=== PATIENT | female | born 1995 | race Two or more races ===

== ENCOUNTER 2016-08-05 16:16 | Emergency (ER) | payer MEDICAID ==
--- NOTE | 2016-08-05 18:05 | EDPHY ---
H & P Stated Complaint: red swollen eyes since easter Time Seen by Provider: 08/05/16 16:24 - Personal History LMP (Females 10-55): Irregular Current Tetanus/Diphtheria Vaccine: Yes Current Tetanus Diphtheria and Acellular Pertussis (TDAP): Yes - Medical/Surgical History Hx Asthma: No Hx Chronic Respiratory Disease: No Hx Diabetes: No Hx Cardiac Disease: No Hx Renal Disease: No Hx Cirrhosis: No Hx Alcoholism: No Hx HIV/AIDS: No Hx Splenectomy or Spleen Trauma: No - Social History Smoking Status: Never smoked Constitutional: Initial Vital Signs Temperature (C) 36.8 C 08/05/16 16:18 Heart Rate 114 H 08/05/16 16:18 Respiratory Rate 20 08/05/16 16:18 Blood Pressure 130/90 H 08/05/16 16:18 O2 Sat (%) 96 08/05/16 16:18 O2 Delivery Mode Room Air Allergies/Adverse Reactions: amoxicillin Allergy (Verified 08/05/16 16:20) Home Medications: Medication Instructions Recorded Cephalexin [Keflex (RX)] 500 mg PO TID #30 cap 08/05/16 Neomy Sulf/Polymyx B Sulf/Hc 1 drops OPTH Q4 #1 bottle 08/05/16 [Cortisporin Ophthalmic Drops (RX)] Medical Decision Making ED Course/Re-evaluation: CHIEF COMPLAINT: Eye pain and redness HISTORY OF PRESENT ILLNESS: The patient is a 20 y/o female, with a history of migraines, complaining of worsening bilateral eye pain and redness for the last 6 weeks. She has associated blurred vision and photophobia. She's had daily 3- hour migraines that resolve with Excedrin, but says these are normal for her. She says two weeks ago she was assessed by urgent care and given a script for some type of eye drops, but she is unsure if they were antibiotics. She used these for 4 days without improvement and thinks her symptoms actually worsened. She has been using Benadryl and other allergy medications without improvement. In the last few days she developed purulent discharge. She also notes she had a strep throat infection that was treated with antibiotics prior to eye symptom onset. She denies fever, chills, abdominal pain, urinary symptoms, joint pain. REVIEW OF SYSTEMS: A 10 point review of systems was performed and is negative with the exception of the elements mentioned in the history of present illness. PHYSICAL EXAM: HR, BP, O2 Sat, RR. Temp noted General Appearance: Alert, well hydrated, appropriate, and non-toxic appearing. Head: Atraumatic without scalp tenderness or obvious injury Eyes: Pupils equal, round, reactive to light and accommodation, EOMI, no trauma. Bilateral injected conjunctival injection with sparing of cornea, associated discharge and periorbital edema. Ears: Clear bilaterally, no perforation, normal landmarks Nose: Atraumatic, no rhinorrhea, clear. Throat: There is no erythema or exudates, no lesions, normal tonsils, mucus membranes moist. Neck: Supple, nontender, no lymphadenopathy. Respiratory: No retractions, no distress, no wheezes, and no accessory muscle use. Lungs are clear to auscultation bilaterally. Cardiovascular: Regular rate and rhythm, no murmurs, rubs, or gallops. Good capillary refill all extremities. Gastrointestinal: Abdomen is soft, nontender, non-distended, no masses, no rebound, no guarding, no peritoneal signs. Musculoskeletal: Normal active ROM of all extremities, atraumatic. Neurological: Alert, appropriate, and interactive. Nonfocal neuro exam Skin: No rashes, good turgor, no nodules on palpation. Past medical history: Migraines; IUD Past surgical history: Denies Family history: Mother age 34 from breast cancer. Social history: Has 3 y/o child. Friend at bedside. DIFFERENTIAL DIAGNOSIS: The differential diagnosis for the patient's eye symptoms included but was not limited to conjunctivitis, medication allergic reaction, periorbital cellulitis, strep infection, viral syndrome, and sepsis. MEDICAL DECISION MAKING: This is a 20 y/o female who presents with a 6-week history of bilateral eye pain and erythema. She received some sort of eye drops 2 weeks ago from urgent care that did not improve her symptoms. On exam, she has bilateral conjunctival injection, discharge, and periorbital edema. She is afebrile here. It's possible she has conjunctivitis with allergic reaction to previous treatment. We will contact [facility] pharmacy to determine which eye drops she was prescribed to determine best treatment. Pharmacy reports she was given Ocuflox drops. The patient has a reported allergy to amoxicillin. We will give her 60mg PO Prednisone, script for Keflex, and a script for Cortisporin eye drops. She understands she needs to follow up with an cane weigher tomorrow. Return precautions given. She is comfortable with this plan. - Data Points Medications Given: Discontinued Medications Cephalexin HCl (Keflex) 500 mg PO EDNOW ONE PRN Reason: Protocol Stop: 08/05/16 18:22 Last Admin: 08/05/16 18:25 Dose: 500 mg Prednisone (Prednisone) 60 mg PO EDNOW ONE Stop: 08/05/16 18:23 Last Admin: 08/05/16 18:25 Dose: 60 mg Departure - Departure Disposition: Home, Routine, Self-Care Clinical Impression: Conjunctivitis of both eyes Qualifiers: Conjunctivitis type: other Qualified Code(s): H10.89 - Other conjunctivitis Condition: Good Instructions: Conjunctivitis (ED) Additional Instructions: 1. Use eye drops as prescribed. 2. Take Keflex as prescribed. Be sure to complete the entire prescription even if you feel better. 3. Use 600mg ibuprofen every 6-8 hours for pain for the next 2-3 days. 4. Follow up with Dr. Story, cane weigher, tomorrow without fail. 5. Return to the ED for worsening of condition. 6. Follow up with your PCP for breast evaluation. Referrals: [facility] [Other] - As per Instructions Angel Story MD [Medical Doctor] - As per Instructions Prescriptions: Cephalexin [Keflex (RX)] 500 mg PO TID #30 cap Neomy Sulf/Polymyx B Sulf/Hc [Cortisporin Ophthalmic Drops (RX)] 1 drops OPTH Q4 #1 bottle Report Scribed for: Sumanth Wilson Report Scribed by: Claudette Gonzalez Date of Report: 08/05/16 Time of Report: 18:06
[2016-08-05] MEDS ORDERED: CEPHALEXIN 500 MG CAP PO ONE (18:21)
[2016-08-05] MEDS ORDERED: predniSONE 20 MG TAB PO ONE (18:22)
[2016-08-05 18:59] VITALS: BP 114/86; PULSE 87; RESP 15; TEMP 98.8; O2SAT 95
== END 2016-08-05 19:00 | disposition home or self-care (01) ==
DX: H10.89 Other conjunctivitis (principal)

== ENCOUNTER 2016-09-06 09:43 | Emergency (ER) | payer MEDICAID ==
[2016-09-06] MEDS ORDERED: FLUORESCEIN SODIUM 1 MG STRIP OP ONE (09:46)
[2016-09-06] MEDS ORDERED: PROPARACAINE 0.5% 15 ML OPHT DROP OP ONE (09:46)
--- NOTE | 2016-09-06 10:30 | EDPHY ---
H & P Stated Complaint: Possible Eye infection Time Seen by Provider: 09/06/16 09:45 HPI/ROS: CHIEF COMPLAINT: bilateral eye complaint HISTORY OF PRESENT ILLNESS: 20-year-old female presents to the emergency department complaining of bilateral eye redness, itching and eyelid tenderness. Patient's symptoms have been going on since . She was seen at an urgent care and given a prescription for Ocuflox eyedrops 6 weeks ago, she use those for 4 days without any improvement. Patient reports she has been using Benadryl and Zyrtec without improvement. She was seen in this emergency department 1 month ago and given a prescription for Cortisporin drops and Keflex. Patient states that she finished these without improvement. Patient states she has good days and bad days. She denies foreign body sensation. No fevers or chills, urinary symptoms, no joint pain, no abdominal pain. She has no other URI symptoms. Patient was instructed to see an collections specialist the next day after her visit 1 month ago and she was unable to do so as she has Medicaid and could not find an collections specialist who takes Medicaid. Patient reports her symptoms are not worsening but they are not going away. REVIEW OF SYSTEMS: A comprehensive 10 point review of systems is otherwise negative aside from elements mentioned in the history of present illness. Source: Patient Exam Limitations: No limitations - Personal History LMP (Females 10-55): IUD In Place Current Tetanus Diphtheria and Acellular Pertussis (TDAP): Yes - Medical/Surgical History Hx Asthma: No Hx Chronic Respiratory Disease: No Hx Diabetes: No Hx Cardiac Disease: No Hx Renal Disease: No Hx Cirrhosis: No Hx Alcoholism: No Hx HIV/AIDS: No Hx Splenectomy or Spleen Trauma: No Other PMH: Denies - Social History Smoking Status: Never smoked - Physical Exam Exam: Visual Acuity: Noted from Nurse's notes. Pupils: PERRLA, EOMI, no nystagmus, no trauma, no injection. Lids: bilateral upper and lower lid edema, swelling and erythema Skin: No proptosis, no vesicles Conjunctivae: injected, not icteric, no discharge Cornea: Exam with slit lamp and fluoroscein shows no corneal abrasion, negative Elise, no dendritic lesions Anterior chamber: Normal, no hyphema or hypopyon Constitutional: Initial Vital Signs Temperature (C) 36.6 C 09/06/16 09:47 Heart Rate 95 09/06/16 09:47 Respiratory Rate 14 09/06/16 09:47 Blood Pressure 116/66 09/06/16 09:47 O2 Sat (%) 97 09/06/16 09:47 O2 Delivery Mode Room Air Allergies/Adverse Reactions: amoxicillin Allergy (Verified 08/05/16 16:20) Home Medications: Medication Instructions Recorded Cephalexin [Keflex (RX)] 500 mg PO TID #30 cap 08/05/16 Neomy Sulf/Polymyx B Sulf/Hc 1 drops OPTH Q4 #1 bottle 08/05/16 [Cortisporin Ophthalmic Drops (RX)] Medical Decision Making - Data Points Medications Given: Discontinued Medications Fluorescein Sodium (Zeezl-I-Eaxfn) 1 mg OP EDNOW ONE Stop: 09/06/16 09:47 Last Admin: 09/06/16 09:56 Dose: 1 mg Proparacaine HCl (Alcaine 0.5%) 1 drops OP EDNOW ONE Stop: 09/06/16 09:47 Last Admin: 09/06/16 09:56 Dose: 1 drops Departure - Departure Disposition: Home, Routine, Self-Care Clinical Impression: Blepharitis of both eyes Qualifiers: Blepharitis type: unspecified type Eyelid: both upper and lower Qualified Code( s): H01.001 - Unspecified blepharitis right upper eyelid; H01.002 - Unspecified blepharitis right lower eyelid; H01.004 - Unspecified blepharitis left upper eyelid; H01.005 - Unspecified blepharitis left lower eyelid Condition: Good Instructions: Blepharitis (ED) Additional Instructions: Warm compresses to eyelids 3 times daily. Scrub your eyelids gently with a washcloth and baby shampoo three times daily. Use artificial tears (systane) without preservatives 3 times daily. Apply a smear of bacitracin to both lids nightly before bed. It is important you see an collections specialist since this has been going on for over 3 months. Return to the emergency department for worsening symptoms, new symptoms or concerns. [phone] is the phone number for [facility] ophthalmology clinic. Referrals: Darvin Morris MD [Medical Doctor] - As per Instructions (Sustainability Specialist on-call )
[2016-09-06 10:55] VITALS: BP 116/82; PULSE 84; RESP 15; TEMP 98.8; O2SAT 94
== END 2016-09-06 10:54 | disposition home or self-care (01) ==
DX: H01.001 Unspecified blepharitis right upper eyelid (principal); H01.002 Unspecified blepharitis right lower eyelid; H01.004 Unspecified blepharitis left upper eyelid; H01.005 Unspecified blepharitis left lower eyelid

== ENCOUNTER 2016-09-27 11:44 | Emergency (ER) | payer MEDICAID ==
[2016-09-27 11:50] VITALS: RESP 16; TEMP 98.8
--- NOTE | 2016-09-27 13:21 | EDPHY ---
H & P Time Seen by Provider: 09/27/16 13:17 HPI/ROS: CHIEF COMPLAINT: Eye swollen shut HISTORY OF PRESENT ILLNESS: This patient is a 21 year old female complaining of left eye pain and swelling onset one week ago. She has had recurrent eye infections since June, and has been seen twice before in this emergency department for bilateral conjunctivitis and blepharitis. She has completed courses of oral antibiotics and antibiotic drops. About one week ago, her upper left eyelid became puffy and painful, and then spread to her lower eyelid. Her left eyelid is moderately painful currently and completely swollen shut, and she has associated blurred vision. She has been attempting to treat her symptoms with warm and cold compresses, and artificial tears. She has not yet seen an value analysis coordinator for follow up. No fever, headache, cough, vomiting, or other associated symptoms. No pain with eye range of motion. REVIEW OF SYSTEMS: Constitutional: No fever, no chills ENT: No sore throat Respiratory: No cough, no shortness of breath Cardiac: No chest pain Gastrointestinal: No nausea, no vomiting, no abdominal pain Genitourinary: no dysuria Musculoskeletal: No myalgias Skin: No rash Neurological: No headache Psychiatric: No depression Past Medical/Surgical History: 1. Migraines. 2. IUD Social History: Lives in [place]. Has 3 y/o child. Smoking Status: Never smoked Physical Exam: Alert, pleasant Head: normal inspection Eyes: Lids: Lower left eyelid erythema, tenderness and swelling, fluctuance laterally (below eyelid margin) Conjunctivae: No erythema, scant discharge on the left eyelashes Pupils: equal round and reactive to light EOMI Cornea: Normal appearance (no flourescein exam) Anterior chamber: Clear, no hyphema ENT: normal inspection Neck: no adenopathy Chest: CTA CV: RRR Neuro: Alert, nonfocal exam Constitutional: Initial Vital Signs Temperature (C) 37.1 C 09/27/16 11:49 Heart Rate 113 H 09/27/16 11:49 Respiratory Rate 16 09/27/16 11:49 Blood Pressure 134/79 H 09/27/16 11:49 O2 Sat (%) 97 09/27/16 11:49 O2 Delivery Mode Room Air Allergies/Adverse Reactions: amoxicillin Allergy (Verified 08/05/16 16:20) Home Medications: Medication Instructions Recorded Cephalexin [Keflex (RX)] 500 mg PO TID #30 cap 08/05/16 Neomy Sulf/Polymyx B Sulf/Hc 1 drops OPTH Q4 #1 bottle 08/05/16 [Cortisporin Ophthalmic Drops (RX)] Doxycycline Hyclate 100 mg PO BID #20 tablet 09/27/16 Hydrocodone/APAP 5/325 [[place] 1 - 2 tab PO Q4H PRN #10 tab 09/27/16 5/325] Medical Decision Making Procedures: Procedure: Incision and Drainage abscess. The patient's abscess was located on the lower left eyelid. Risks, benefits, alternatives discussed with the patient and consent obtained. The area was prepped and draped in sterile fashion. The patient received local anesthesia with 1% lidocaine with epinephrine.The abscess was incised with a #11 blade and purulent drainage was expressed. The wound was packed. The patient tolerated the procedure well. The procedure was performed by myself. ED Course/Re-evaluation: 21 year old female presenting with left eye swelling, erythema, pain. Patient has preseptal cellulitis of the lower left eyelid with associated abscess. Plan for incision and drainage. I&D performed. Packing in place. Purulent drainage sample sent for wound culture. 13:[address] Story. Patient will follow up with him in two days. He recommends Doxycycline 100mg bid. The patient will be discharged home in good condition with prescriptions for Doxycycline, Thedford for symptom management. She understands the importance of following up with Dr. Story in the next two days. Return precautions discussed. The patient is comfortable with this plan. Differential Diagnosis: The differential diagnosis for the patient's eye symptoms included but was not limited to conjunctivitis, periorbital cellulitis, preseptal cellulitis, abscess , blepharitis, viral syndrome, and sepsis. - Data Points Microbiology Results: MICROBIOLOGY 09/27/16 13:50 Eye - Swab Gram Stain - Final Medications Given: Discontinued Medications Doxycycline Hyclate (Doxycycline Hyclate) 100 mg PO EDNOW ONE PRN Reason: Protocol Stop: 09/27/16 13:51 Last Admin: 09/27/16 13:56 Dose: 100 mg Departure - Departure Disposition: Home, Routine, Self-Care Clinical Impression: Preseptal cellulitis of left lower eyelid, Abscess of left lower eyelid Condition: Good Instructions: Periorbital Cellulitis in Adults (ED), Abscess (ED) Additional Instructions: 1. We spoke with Dr. Story's office, and they should be able to get you in in two days for an appointment. Call as soon as possible to schedule this appointment with ophthalmology. 2. You should apply warm compresses to your eye 4 times a day. If you note drainage, gently scrub the area around the eye to keep it clean. 3. Take your Doxycycline as prescribed. It is important to finish your entire course of antibiotics. 4. You can take 600mg of ibuprofen every 6-8 hours with food as needed for pain. You may also take Thedford as needed as prescribed for severe pain. Do not take Tylenol (acetaminophen) while you are taking Thedford. 5. Have your packing removed in two days. 5. Return to the Emergency Department for any worsening of condition. Referrals: [facility],. [Clinic] - As per Instructions Angel Story MD [Medical Doctor] - As per Instructions Prescriptions: Doxycycline Hyclate 100 mg PO BID #20 tablet Hydrocodone/APAP 5/325 [Thedford 5/325] 1 - 2 tab PO Q4H PRN #10 tab PRN Reason: Pain, Moderate Report Scribed for: Lily Lopez Report Scribed by: Allie Rowe Date of Report: 09/27/16 Time of Report: 13:18 Physician Review and Approval Statement: 09/27/16 13:17 Portions of this note were transcribed by a medical administrator. I personally performed a history, physical exam, medical decision making, and confirmed accuracy of information the transcribed note.
[2016-09-27] MEDS ORDERED: DOXYCYCLINE HYCLATE 100 MG CAP/TAB PO ONE (13:50)
[2016-09-27 14:03] VITALS: BP 109/81; PULSE 98; O2SAT 95
== END 2016-09-27 14:02 | disposition home or self-care (01) ==
PROC: 089 Eye, Drainage (ICD-10-PCS; principal; 2016-09-27)
DX: H00.035 Abscess of left lower eyelid (principal); L03.211 Cellulitis of face

== ENCOUNTER 2017-02-23 20:01 | Emergency (ER) | payer MEDICAID ==
[2017-02-23 20:07] VITALS: BP 141/84; PULSE 93; RESP 20; TEMP 98.2; O2SAT 95
--- NOTE | 2017-02-23 20:33 | EDPHY ---
H & P Time Seen by Provider: 02/23/17 20:28 HPI/ROS: CHIEF COMPLAINT: Right otalgia HISTORY OF PRESENT ILLNESS: This patient is a 21 y/o female complaining of right-sided otalgia onset two days ago. She developed a cyst on her right ear two days ago and subsequently developed pain. The cyst has resolved, but her discomfort remains. The pain involves her entire external ear. She endorses some associated slight hearing loss, no tinnitus. She denies any drainage. She denies fever, cold symptoms, or other recent illness. No trauma to the ear. Past Medical/Surgical History: Denies. Social History: Nonsmoker. Family at bedside. Lives in [place]. Smoking Status: Never smoked Physical Exam: General Appearance: Alert, pleasant Eyes: Pupils equal and round, no conjunctival pallor or injection ENT, Mouth: Drainage fills right external auditory canal, unable to visualize TM. Tenderness to pinna and EAC. Left ear exam normal. Mucous membranes moist Neck: Normal inspection, no adenopathy Neurological: A&O, nonfocal, normal gait Skin: Warm and dry Psychiatric: Mood and affect normal Constitutional: Initial Vital Signs Temperature (C) 36.8 C 02/23/17 20:05 Heart Rate 93 02/23/17 20:05 Respiratory Rate 20 02/23/17 20:05 Blood Pressure 141/84 H 02/23/17 20:05 O2 Sat (%) 95 02/23/17 20:05 O2 Delivery Mode Room Air Allergies/Adverse Reactions: amoxicillin Allergy (Verified 02/23/17 20:05) Home Medications: Medication Instructions Recorded Cephalexin [Keflex (RX)] 500 mg PO TID #30 cap 08/05/16 Neomy Sulf/Polymyx B Sulf/Hc 1 drops OPTH Q4 #1 bottle 08/05/16 [Cortisporin Ophthalmic Drops (RX)] Doxycycline Hyclate 100 mg PO BID #20 tablet 09/27/16 Hydrocodone/APAP 5/325 [Hancock 1 - 2 tab PO Q4H PRN #10 tab 09/27/16 5/325] Azithromycin [Zithromax] 250 mg PO DAILY #6 tab 02/23/17 Neomy Sulf/Polymyx B Sulf/Hc 2 drops OT Q6 #1 bottle 02/23/17 [Cortisporin Otic Suspension] Medical Decision Making ED Course/Re-evaluation: 21 y/o female presents with two day history of right otalgia. Exam reveals drainage filling the right external auditory canal, unable to visualize TM. Tenderness to pinna and EAC. No systemic signs of illness. Suspect otitis externa. Plan to d/c in good condition with prescriptions for PO Azithromycin and Cortisporin otic drops. She will follow up with otolaryngology for symptoms unresolved following completion of antibiotics. Return precautions discussed. She is comfortable with this plan. - Data Points Medications Given: Discontinued Medications Hydrocodone Bitart/Acetaminophen (Hancock 5/325mg Prepack#6) 1 btl TAKEHOME EDNOW ONE Stop: 02/23/17 20:39 Last Admin: 02/23/17 20:43 Dose: 1 btl Departure - Departure Disposition: Home, Routine, Self-Care Clinical Impression: Otitis externa Condition: Good Instructions: Hydrocodone/Acetaminophen (By mouth), Otitis Externa (ED) Additional Instructions: 1. Take Azithromycin as prescribed. Use Cortisporin otic drops as prescribed. 2. Take ibuprofen or Tylenol as directed below as needed for pain. You may alternate these every 3 hours as we discussed. 3. Follow up with an ear, nose, and throat specialist for further evaluation of symptoms unresolved after you finish your antibiotics. 4. Return to the emergency department for increased pain, redness, swelling, or discharge from your ear or if you develop fever, vomiting, or other worsening of condition. Adult Pain & Fever Control: We recommend Acetaminophen (Tylenol) and Ibuprofen (Motrin,Advil) for pain and fever control. When fever is high or pain severe, both drugs can be used at the same time, but at different intervals. Please note the time differences. Your dose is: Acetaminophen 650mg every 4 to 6 hours Ibuprofen 600mg every 6-8 hours with food Note: do not take Acetaminophen with Hydrocodone (Vicodin, Lortab) or Oxycodone (Percocet). These medications also contain Acetaminophen. No more than 3000mg of Acetaminophen should be taken in 24 hours (for an adult). Referrals: Susie Ivory MD [Medical Doctor] - As per Instructions Prescriptions: Azithromycin [Zithromax] 250 mg PO DAILY #6 tab Neomy Sulf/Polymyx B Sulf/Hc [Cortisporin Otic Suspension] 2 drops OT Q6 #1 bottle Report Scribed for: Lily Lopez Report Scribed by: Allie Rowe Date of Report: 02/23/17 Time of Report: 20:58 Physician Review and Approval Statement: 02/23/17 20:58 Portions of this note were transcribed by a medical imaging director. I personally performed a history, physical exam, medical decision making, and confirmed accuracy of information the transcribed note.
[2017-02-23] MEDS ORDERED: HYDROCOD/APAP 5/325 PREPACK#6 BTL TAKEHOME ONE (20:38)
== END 2017-02-23 20:47 | disposition home or self-care (01) ==
DX: H60.91 Unspecified otitis externa, right ear (principal)

== ENCOUNTER 2017-04-13 13:16 | Emergency (ER) | payer MEDICAID ==
[2017-04-13 13:32] VITALS: BP 119/75; PULSE 80; RESP 16; TEMP 98.4; O2SAT 94
--- NOTE | 2017-04-13 14:21 | EDPHY ---
H & P Time Seen by Provider: 04/13/17 13:53 HPI/ROS: CHIEF COMPLAINT: Right ear pain HISTORY OF PRESENT ILLNESS: 21-year-old female presents with right ear pain. Onset of ear pain yesterday, persistent since then. Associated with decreased hearing, a small amount of drainage and tenderness of the pinna. History of prior otitis externa. No recent fever, cough, nasal congestion or myalgias. Past Medical/Surgical History: Otitis externa Smoking Status: Never smoked Physical Exam: General Appearance: Alert, pleasant Eyes: Pupils equal and round, no conjunctival pallor or injection ENT, Mouth: Right ear-tenderness of the pinna, mild swelling of the ear canal, minimal drainage, tympanic membrane is visualized and is normal. Neck: Normal inspection Respiratory: Lungs are clear to auscultation Cardiovascular: Regular rate and rhythm Neurological: A&O, nonfocal, normal gait Skin: Warm and dry Constitutional: Initial Vital Signs Temperature (C) 36.9 C 04/13/17 13:29 Heart Rate 80 04/13/17 13:29 Respiratory Rate 16 04/13/17 13:29 Blood Pressure 119/75 04/13/17 13:29 O2 Sat (%) 94 04/13/17 13:29 O2 Delivery Mode Room Air Allergies/Adverse Reactions: amoxicillin Allergy (Verified 04/13/17 13:28) Home Medications: Medication Instructions Recorded Neomy Sulf/Polymyx B Sulf/Hc 2 drops OT Q6 #1 bottle 02/23/17 [Cortisporin Otic Suspension] Neomy Sulf/Polymyx B Sulf/Hc 2 drops OT TID #1 otic.btl 04/13/17 [Cortisporin Otic Suspension] Departure - Departure Disposition: Home, Routine, Self-Care Clinical Impression: Otitis externa Qualifiers: Otitis externa type: other infective Chronicity: acute Laterality: right Qualified Code(s): H60.391 - Other infective otitis externa, right ear Condition: Good Instructions: Otitis Externa (ED) Additional Instructions: Ibuprofen 600 mg 3 times daily while the pain persists. Call ENT to make an appointment. Referrals: Yovani Malik MD [Medical Doctor] - As per Instructions Prescriptions: Neomy Sulf/Polymyx B Sulf/Hc [Cortisporin Otic Suspension] 2 drops OT TID #1 otic.btl
--- NOTE | 2017-04-13 15:03 | ASMTCMCOM ---
CM Note CM Note Notes: ED report faxed to Dr. Yovani Malik, ENT (referral) as per requested from Amairani at the [facility]'s office. Date Signed: 04/13/2017 03:03 PM Electronically Signed By:Monie Alfaro RN
== END 2017-04-13 14:19 | disposition home or self-care (01) ==
DX: H60.391 Other infective otitis externa, right ear (principal)